=== PATIENT | female | born 1940 | race Caucasian/White ===

== ENCOUNTER 2017-04-28 07:07 | Outpatient (CLI) | payer MEDICARE ==
[~2017-04-28] VITALS: Ht 167.6 cm; Wt 49.9 kg
[2017-04-29] MEDS ORDERED: FLUT1DIS26 IH (13:43)
[2017-04-29] MEDS ORDERED: ESTR0.62 PO (13:43)
[2017-04-29] MEDS ORDERED: ROSU20TA PO (13:43)
[2017-04-29] MEDS ORDERED: OMEP40CA36 PO (13:43)
[2017-04-29] MEDS ORDERED: BETA2500 PO (13:43)
[2017-04-29] MEDS ORDERED: UBID1CAP58 PO (13:43)
[2017-04-29] MEDS ORDERED: MULT-1029 PO (13:43)
[2017-04-29] MEDS ORDERED: CALC-694 PO (13:43)
[2017-04-29] MEDS ORDERED: VALS1TAB5 PO (13:43)
[2017-04-29] MEDS ORDERED: FISH1CAP5 PO (13:43)
[2017-04-29] MEDS ORDERED: MIRA25TA PO (13:43)
== END 2017-04-28 16:30 ==
LOC: PREOP 07:07
PROVIDERS: ATTEND Orthopaedic Surgery Orthopaedic Surgery of the Spine
DX: Z01.818 Encounter for other preprocedural examination (principal); M54.5 Low back pain; I10 Essential (primary) hypertension; Z22.322 Carrier or suspected carrier of Methicillin resistant Staphylococcus aureus

== ENCOUNTER 2017-05-09 05:59 | Day surgery (SDC) | payer MEDICARE ==
[~2017-05-09] VITALS: Ht 167.6 cm; Wt 49.9 kg
[~2017-05-09 05:59] MED LIST: BETA2500 PO; CALC-694 PO; ESTR0.62 PO; FISH1CAP5 PO; FLUT1DIS26 IH; MIRA25TA PO; MULT-1029 PO; OMEP40CA36 PO; ROSU20TA PO; UBID1CAP58 PO; VALS1TAB5 PO
[2017-05-09 06:10] VITALS: BP 142/97
[2017-05-09] MEDS: LACTATED RINGERS 1,000 ML IV PRN ×2 (06:35→09:06)
[2017-05-09] MEDS ORDERED: CLINDAMYCIN 600 MG/50 ML IVPB 50 ML IV ONE ×3 (06:55→07:00)
[2017-05-09] MEDS ORDERED: DEXMEDETOMIDINE 200 MCG/2 ML (PRECEDEX) VIAL IV ONE (06:58)
[2017-05-09] MEDS ORDERED: VANCOMYCIN 1000 MG/VIAL ONE (07:04)
[2017-05-09] MEDS ORDERED: BUP/EPI 0.5% 1:200,000 (SENSORCAINE) 30 ML VIAL ONE (07:04)
[2017-05-09] MEDS ORDERED: GENTAMICIN 40 MG/ML 2 ML INJ SDV ONE (07:05)
[2017-05-09] MEDS ORDERED: NS (IVPB) 50 ML ONE (07:10)
[2017-05-09] MEDS ORDERED: ONDANSETRON 4 MG/2 ML (SDV) Z0FRAN ONE (08:43)
[2017-05-09] MEDS ORDERED: SEVOFLURANE (ULTANE) 15 ML INHAL SOLN ONE ×2 (08:43→09:03)
[2017-05-09] MEDS ORDERED: proPOfol 200 MG/20 ML (DIPRIVAN) VIAL IV ONE (08:43)
[2017-05-09] MEDS ORDERED: LIDOCAINE PF 2% 5 ML (XYLOCAINE) VIAL ONE (08:43)
[2017-05-09] MEDS ORDERED: ROCURONIUM 10 MG/ML 5 ML SYRINGE IV ONE (08:44)
--- NOTE | 2017-05-09 08:52 | Progress Note-Post Operative ---
Post-Operative Progess Note Surgeon (s)/Waterproofing Supervisor (s) Surgeon YANG BO MD Waterproofing Supervisor: MERON Muñoz Pre-Operative Diagnosis Chronic Lumbago, radiculopathy Post-Operative Diagnosis Same Procedure & Operative Findings Date of Procedure 05/09/17 Procedure Performed/Findings T10-11 Lami for paddle electrode and battery placement for SCS Anesthesia Type GETA Estimated Blood Loss Estimated blood loss (mL): Min Specimens/Packing Specimens Removed None YANG BO MD May 09, 2017 8:52 am
[2017-05-09] MEDS ORDERED: GLYCOPYRROLATE 0.2 MG/ML (ROBINUL) 2 ML VIAL ONE (09:03)
[2017-05-09] MEDS ORDERED: NEOSTIGMINE (BLOXIVERZ ) 1 MG/1ML 10 ML VIAL ONE (09:03)
[2017-05-09] MEDS ORDERED: HYDROmorphone (DILAUDID) 2 MG/ML VIAL IVP PRN (09:30)
[2017-05-09] MEDS ORDERED: fentaNYL INJECTION 100 MCG/2 ML AMP IVP PRN (09:30)
[2017-05-09] MEDS ORDERED: ONDANSETRON 4 MG/2 ML (SDV) Z0FRAN IVP PRN ×2 (09:30)
[2017-05-09 10:15] VITALS: BP 132/77
[2017-05-09 10:16] VITALS: BP 132/77
--- NOTE | 2017-05-09 10:26 | Diagnostic Imaging Report ---
INDICATION: Spinal cord stimulator placement. FINDINGS: Fluoroscopy was provided in the OR for spinal cord stimulator placement. 13 seconds of fluoroscopy was utilized. There is a spinal stimulator overlying the T10 and T11 vertebral bodies in the midline. IMPRESSION: Fluoroscopy for spinal cord stimulator placement. Dictated by: Dictated on workstation # [id number]
[2017-05-09 10:45] VITALS: BP 178/81
[2017-05-09 11:15] VITALS: BP 178/86
[2017-05-09] MEDS ORDERED: ACETAMINOPHEN 500 MG TAB (TYLENOL) ONE (11:32)
[2017-05-09] MEDS ORDERED: ACETAMINOPHEN 500 MG TAB (TYLENOL) PO ONE (11:35)
--- NOTE | 2017-05-09 14:23 | OPERATIVE REPORT ---
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 PROCEDURES PERFORMED: 1. T10-T11 laminectomy for placement of paddle electrode for spinal cord stimulation. 2. Placement of impulse generating battery for spinal cord stimulation and complex programing spinal cord stimulator. IMPLANTS USED: A [employer] SureScan MRI compatible battery and a [employer] SureScan MRI 2 x 8 paddle electrode. SURGEON: David Thomas MD PLUMBING WAREHOUSE HELPER: MARSHA Bynum ROLE OF SHAFT HEADMAN: Aid in retraction of the procedure, suction of neural elements, and wound closure. ANESTHESIA: General endotracheal. ESTIMATED BLOOD LOSS: Minimal. INTRAVENOUS FLUIDS: Please see anesthesia record. ANTIBIOTICS: Ancef. COMPLICATIONS: None. SPECIMENS: None. INDICATIONS FOR PROCEDURE: The patient is a 77-year-old female with progressively intolerable back and leg pain, failed conservative therapy, positive stimulator trial, desires permanent placement. NEUROMONITORING: Standard intraoperative neurophysiologic monitoring carried out by means of real time continuous high quality bidirectional remote audio and visual communication to both the energy conservation technician and surgeon was carried out by Dr. Rushing. SSEPS, EMGs and TOFs were carried out continuously and stable throughout the procedure. DESCRIPTION OF PROCEDURE: The patient was taken to the preoperative holding area and brought back to the operative suite. After adequate induction of general anesthetic and preoperative antibiotics, carefully turned prone on Carmine table, careful padding to all extremities, sterilely prepped and draped posterior thoracic and lumbar spine and then a small incision was made overlying the T10-T11 disk space. Once confirmation of level was confirmed with imaging, laminotomy was created. Dural separator was utilized and the paddle electrode was placed across the T9-T10 disk space where she had her most positive trial. Once it was assured to be in midline, it was anchored at the lamina level. It was anchored at the fascial level. The fascia was then closed, strain relief loops were created. It was tunneled to the left hip where a battery pocket was created and then it was connected to the system. System was functioning well. Final imaging was obtained. Wounds were closed in layers and the patient was transferred to recovery room in stable condition and tolerated the procedure well. Job ID: [id number] DocumentID: [id number] Dictated Date: 05/09/2017 08:51:18 Shell Mold Bonding Machine Operator Date: 05/09/2017 14:22:45 Dictated By: DAVID THOMAS MD
--- NOTE | 2017-05-09 14:29 | Anesthesia-General Post-Op ---
General Patient Condition Mental Status/LOC: Same as Preop Cardiovascular: Satisfactory Nausea/Vomiting: Absent Respiratory: Satisfactory Pain: Controlled Complications: Absent Post Op Complications Complications None Follow Up Care/Instructions Patient Instructions None needed. Anesthesia/Patient Condition Patient Condition Patient was doing well, C/O some back pain which is to be expected, stable vital signs, no apparent adverse anesthesia problems. MORGAN RECIO DO May 09, 2017 14:28
== END 2017-05-09 11:50 | disposition home or self-care (01) ==
LOC: SDC 05:59
PROVIDERS: ATTEND Orthopaedic Surgery Orthopaedic Surgery of the Spine
DX: M54.16 Radiculopathy, lumbar region (principal); G89.4 Chronic pain syndrome; I10 Essential (primary) hypertension; J43.9 Emphysema, unspecified; K21.9 Gastro-esophageal reflux disease without esophagitis; Z79.899 Other long term (current) drug therapy; Z88.8 Allergy status to other drugs, medicaments and biological substances; Z88.5 Allergy status to narcotic agent; Z11.2 Encounter for screening for other bacterial diseases
CPT/HCPCS: 87081

== ENCOUNTER 2017-07-05 05:39 | Outpatient (CLI) | payer MEDICARE ==
[~2017-07-05] VITALS: Ht 167.6 cm; Wt 49.9 kg
== END 2017-07-05 12:10 ==
LOC: PREOP 05:39
PROVIDERS: ATTEND Orthopaedic Surgery Orthopaedic Surgery of the Spine
DX: Z01.818 Encounter for other preprocedural examination (principal)

== ENCOUNTER 2017-07-11 07:08 | Day surgery (SDC) | payer MEDICARE ==
[~2017-07-11] VITALS: Ht 167.6 cm; Wt 49.9 kg
[2017-07-11] MEDS ORDERED: fentaNYL INJECTION 100 MCG/2 ML AMP ONE (07:41)
[2017-07-11] MEDS ORDERED: ONDANSETRON 4 MG/2 ML (SDV) Z0FRAN ONE (07:43)
[2017-07-11] MEDS ORDERED: LIDOCAINE PF 2% 5 ML (XYLOCAINE) VIAL ONE (07:43)
[2017-07-11] MEDS ORDERED: ROCURONIUM 10 MG/ML 5 ML SYRINGE IV ONE (07:43)
[2017-07-11] MEDS ORDERED: SEVOFLURANE (ULTANE) 15 ML INHAL SOLN ONE ×3 (07:43→09:15)
[2017-07-11] MEDS ORDERED: proPOfol 200 MG/20 ML (DIPRIVAN) VIAL IV ONE (07:43)
[2017-07-11] MEDS ORDERED: GENTAMICIN 40 MG/ML 2 ML INJ SDV ONE (08:11)
[2017-07-11] MEDS ORDERED: CLINDAMYCIN 600 MG/50 ML IVPB 50 ML IV ONE ×2 (08:12→09:30)
[2017-07-11] MEDS ORDERED: LACTATED RINGERS 1,000 ML IV PRN ×2 (08:15)
[2017-07-11] MEDS ORDERED: BUP/EPI 0.5% 1:200,000 (SENSORCAINE) 30 ML VIAL ONE (08:53)
[2017-07-11] MEDS ORDERED: SUCCINYLCHOLINE INJ 100 MG/5 ML SYR ONE (09:11)
--- NOTE | 2017-07-11 09:17 | Progress Note-Post Operative ---
Post-Operative Progess Note Surgeon (s)/Charge Authorizer (s) Surgeon YANG BO MD Charge Authorizer: MERON Oshea Pre-Operative Diagnosis Painful Hardware Post-Operative Diagnosis Same Procedure & Operative Findings Date of Procedure 07/11/17 Procedure Performed/Findings Removal of Spinal Cord Stim and paddle lead Anesthesia Type GETA Estimated Blood Loss Estimated blood loss (mL): min Specimens/Packing Specimens Removed none YANG BO MD July 11, 2017 9:17 am
[2017-07-11 09:20] VITALS: BP 147/76
[2017-07-11] MEDS ORDERED: ONDANSETRON 4 MG/2 ML (SDV) Z0FRAN IVP PRN (09:45)
[2017-07-11] MEDS ORDERED: fentaNYL INJECTION 100 MCG/2 ML AMP IVP PRN (09:45)
[2017-07-11 10:15] VITALS: BP 172/86
--- NOTE | 2017-07-11 10:44 | Anesthesia-General Post-Op ---
General Patient Condition Mental Status/LOC: Same as Preop Cardiovascular: Satisfactory Nausea/Vomiting: Absent Respiratory: Satisfactory Pain: Controlled Complications: Absent Post Op Complications Complications None Follow Up Care/Instructions Patient Instructions None needed. Anesthesia/Patient Condition Patient Condition Patient is doing well, no complaints, stable vital signs, no apparent adverse anesthesia problems. No complications reported per nursing. JENNY CARSON CRNA July 11, 2017 10:44
[2017-07-11 10:45] VITALS: BP 180/93
[2017-07-11 11:15] VITALS: BP 189/90
[2017-07-11 11:35] VITALS: BP 189/90
--- NOTE | 2017-07-11 17:26 | OPERATIVE REPORT ---
DATE OF SERVICE: 07/11/2017 PREOPERATIVE DIAGNOSIS: Painful hardware. POSTOPERATIVE DIAGNOSIS: Painful hardware. PROCEDURES PERFORMED Removal of spinal cord stimulating battery and paddle electrode via laminectomy. DATE AND TIME OF SURGERY: Please see anesthesia record. SURGEON: David Thomas MD SUTURE WINDER HAND: MARSHA Muñoz. ROLE OF QUANTITATIVE ANALYST: Aid in retraction of the procedure, suction of neural elements, and wound closure. ANESTHESIA: General endotracheal. ESTIMATED BLOOD LOSS: Minimal. INTRAVENOUS FLUIDS: Please see anesthesia record. ANTIBIOTICS: Ancef. COMPLICATIONS: None. SPECIMENS: None. INDICATIONS FOR PROCEDURE: The patient is a 77-year-old female, who had a stimulator placed. She does not use it. Does not like it and desires its removal. DESCRIPTION OF PROCEDURE: The patient was taken to the preoperative holding area and brought back to the operative suite. After adequate induction of general anesthesia, preoperative antibiotics and placement of spinal monitoring, carefully turned prone on Carmine table, careful padding to all extremities, sterilely prepped and draped posterior thoracolumbar spine. The battery site was opened and the battery was removed. The capsule around the battery was excised and then the midline laminectomy site was opened. Wires were tracked down to the laminectomy defect and a paddle would not come out without widening the laminectomy slightly. Laminectomy was slightly increased. The paddle was visualized and removed. All the contacts were accounted for and came out uneventfully. Hemostasis was achieved. Wound was copiously irrigated, closed in layers and patient was transferred to the recovery room in stable condition and tolerated the procedure well. Job ID: [id number] DocumentID: [id number] Dictated Date: 07/11/2017 09:19:45 Winch Driver Date: 07/11/2017 17:25:36 Dictated By: DAVID THOMAS MD
== END 2017-07-11 11:35 | disposition home or self-care (01) ==
LOC: SDC 07:08
PROVIDERS: ATTEND Orthopaedic Surgery Orthopaedic Surgery of the Spine
DX: T85.840A Pain due to nervous system prosthetic devices, implants and grafts, initial encounter (principal); Z11.2 Encounter for screening for other bacterial diseases; I10 Essential (primary) hypertension; E78.00 Pure hypercholesterolemia, unspecified; J44.9 Chronic obstructive pulmonary disease, unspecified; F41.9 Anxiety disorder, unspecified; M54.9 Dorsalgia, unspecified; F32.9 Major depressive disorder, single episode, unspecified; Z87.891 Personal history of nicotine dependence; Z79.899 Other long term (current) drug therapy; Z88.5 Allergy status to narcotic agent
CPT/HCPCS: 87081